=== PATIENT | male | born 1980 | race African-American/Black ===

== ENCOUNTER 2020-01-28 22:15 | Emergency (ER) | payer BC, MEDICAID ==
[~2020-01-28] VITALS: Ht 172.7 cm; Wt 100.0 kg
[2020-01-28 22:19] VITALS: BP 190/97
== END 2020-01-28 23:54 | disposition left against medical advice (07) ==
LOC: ER 22:15
DX: Z53.21 Procedure and treatment not carried out due to patient leaving prior to being seen by health care provider (principal); I10 Essential (primary) hypertension; E11.9 Type 2 diabetes mellitus without complications
CPT/HCPCS: 93005